=== PATIENT | male | born 1990 | race Caucasian/White ===

== ENCOUNTER 2016-08-06 16:42 | Outpatient (CLI) | payer OTHER ==
[2016-08-06 18:16] LABS: THYROID STIMULATING HORMONE 2.1 uIU/mL (0.34-5.60)
== END 2016-08-06 16:43 | disposition home or self-care (01) ==
LOC: LAB 16:42
PROVIDERS: ATTEND Surgery
DX: E04.1 Nontoxic single thyroid nodule (principal)
CPT/HCPCS: 36415; 84439; 84443

== ENCOUNTER 2016-08-11 09:46 | Outpatient (CLI) | payer OTHER | END 2016-08-11 09:47 | disposition home or self-care (01) | DX: E04.1 Nontoxic single thyroid nodule (principal) ==

== ENCOUNTER 2020-12-14 14:43 | Emergency (ER) | payer SELFPAY ==
[2020-12-14 14:59] VITALS: BP 143/73
--- NOTE | 2020-12-14 15:52 | ED Physician Documentation ---
History of Present Illness - Stated complaint Stated Complaint: COLLARBONE PX - Chief complaint Chief Complaint: Ext Problem - History obtained from History obtained from: Patient, Family - History of Present Illness Timing: How many days ago (3) Pain level max: 7 Pain level now: 5 - Additonal information Additional information: Patient is a 30-year-old male who presents to the emergency department after a fall 3 days ago in which he fractured his left clavicle. Worse with movement, better with rest. No numbness or tingling. He was seen at a small hospital out of town and told to follow-up with orthopedics. He states the pain has increased and is here for repeat evaluation. No other injuries. He was placed in a figure 8 brace. Review of Systems Constitutional: denies: Fever, Chills GI: denies: Vomiting Musculoskeletal: denies: Neck pain, Back pain Neurologic: denies: Headache, Head injury PD PAST MEDICAL HISTORY - Past Medical History Past Medical History: No - Past Surgical History Past Surgical History: Yes Derm: Other - Present Medications Home Medications: Ambulatory Orders Medication Instructions Recorded Confirmed HYDROcod/ACETAM 5/325 [Marianna 5/325] 1 tab PO PRN PRN 12/14/20 12/14/20 - Allergies Allergies/Adverse Reactions: Allergies Allergy/AdvReac Type Severity Reaction Status Date / Time No Known Drug Allergies Allergy Verified 12/14/20 14:59 - Social History Does the pt smoke?: No Smoking Status: Never smoker Does the pt drink ETOH?: Yes Does the pt have substance abuse?: Yes Substance Use and Type: Marijuana - Immunizations Immunizations are current?: Yes PD ED PE NORMAL - Vitals Vital signs reviewed: Yes - General General: Alert and oriented X 3, No acute distress - HEENT HEENT: Moist mucous membranes - Derm Derm: Warm and dry - Extremities Extremities: Other (L clavicle - Ecchymosis, swelling, tenderness to the left midshaft clavicle. Neurovascular intact including the axillary nerve.) - Neuro Neuro: Alert and oriented X 3 - Psych Psych: Normal mood, Normal affect Results - Vitals Vitals: Vital Signs - 24 hr 12/14/20 14:54 Temperature 36.0 C L Heart Rate 63 Respiratory 16 Rate Blood Pressure 143/73 H O2 Saturation 98 Oxygen O2 Source Room air - Rads (name of study) L clavicle xray Radiology: Prelim report reviewed, EMP read contemporaneously, See rad report (Comminuted midshaft clavicle fracture) PD MEDICAL DECISION MAKING - ED course Complexity details: reviewed results, re-evaluated patient, considered differential, d/w patient ED course: Patient with a comminuted midshaft left clavicular fracture. No skin tenting. Neurovascularly intact. Placed in a sling. We will have him follow-up with orthopedics for further care. The [id number] brace was removed. Patient counseled regarding signs and symptoms for which I believe and urgent re- evaluation would be necessary. Patient with good understanding of and agreement to plan and is comfortable going home at this time This document was made in part using voice recognition software. While efforts are made to proofread this document, sound alike and grammatical errors may occur. Departure - Departure Disposition: 01 Home, Self Care Clinical Impression: Clavicle fracture Qualifiers: Encounter type: initial encounter Clavicle location: shaft Fracture type: closed Fracture alignment: displaced Laterality: left Qualified Code(s): S42.022A - Displaced fracture of shaft of left clavicle, initial encounter for closed fracture Condition: Good Instructions: ED Fx Clavicle Follow-Up: [facility] [Provider Group] - Within 1 week Comments: Follow-up with orthopedics for repeat evaluation. Return if you worsen. You continue to use your pain medications as needed at home. Continue to stay in the sling as much as possible. You can gently move your shoulder to help prevent a frozen shoulder, making small movements in the sling.
--- NOTE | 2020-12-14 16:08 | XRAY Report ---
PROCEDURE: Clavicle LT INDICATIONS: clavicle fracture 3 days ago TECHNIQUE: 2 views of the clavicle were acquired. COMPARISON: None. FINDINGS: Bones: Markedly comminuted fracture of the distal shaft of the left clavicle with displacement and ov erriding. No suspicious bony lesions. Soft tissues: No suspicious soft tissue calcifications. IMPRESSION: Comminuted, displaced left clavicular fracture with overriding. Reviewed by: Christiano Washington MD on 12/14/2020 3:06 PM [facility] Approved by: Christiano Washington MD on 12/14/2020 3:06 PM [facility] Station ID: [id number]
== END 2020-12-14 16:53 | disposition home or self-care (01) ==
LOC: ED 14:43
DX: S42.022A Displaced fracture of shaft of left clavicle, initial encounter for closed fracture (principal); W19.XXXA Unspecified fall, initial encounter
CPT/HCPCS: 99283; 99284

== ENCOUNTER 2021-01-28 08:45 | Outpatient (CLI) | payer SELFPAY ==
--- NOTE | 2021-01-28 15:00 | XRAY Report ---
PROCEDURE: Clavicle LT INDICATIONS: DISPLACED FX OF SHAFT OF L CLAVICLE TECHNIQUE: 2 views of the clavicle were acquired. COMPARISON: 12/14/2020 FINDINGS: Bones: There is again seen a comminuted fracture of the midportion of the left clavicle, with overlap ping of fracture fragments. Since the prior examination, there has been remodeling of the fracture li livier, with rounding of the fracture margins and callus formation. Minimal bridging callus formation is seen. No new fracture is seen. The visualized ribs appear intact. No suspicious lytic or blastic lesions a re seen. Soft tissues: No suspicious soft tissue calcifications. The visualized lung demonstrates a normal a ppearance. IMPRESSION: Mild interval healing change of the comminuted fracture of the left mid clavicle, with overlapping of fracture fragments. Reviewed by: Paulino Crump MD on 01/28/2021 1:59 PM [facility] Approved by: Paulino Crump MD on 01/28/2021 1:59 PM [facility] Station ID: [id number]
== END 2021-01-28 23:59 | disposition home or self-care (01) ==
LOC: DI.N 08:45
PROVIDERS: ATTEND Physician Assistant
DX: S42.012D Anterior displaced fracture of sternal end of left clavicle, subsequent encounter for fracture with routine healing (principal)

== ENCOUNTER 2023-04-15 09:15 | Outpatient (CLI) | payer OTHER ==
[2023-04-15 09:29] LABS: BASOPHILS % (AUTO) 0.6 %; EOSINOPHILS # (AUTO) 0.1 10^3/uL (0.0-0.7); EOSINOPHILS % (AUTO) 1.8 %; HCT - HEMATOCRIT 44.9 % (42.0-52.0); HGB - HEMOGLOBIN 13.8 g/dL (14.0-18.0); LYMPHOCYTES # (AUTO) 2.6 10^3/uL (1.5-3.5); LYMPHOCYTES % (AUTO) 36.4 %; MEAN CORPUSCULAR HEMOGLOBIN 22.2 pg (27.0-31.0); MEAN CORPUSCULAR HGB CONC 30.7 g/dL (32.0-36.0); MEAN CORPUSCULAR VOLUME 72.1 fL (80.0-94.0); MEAN PLATELET VOLUME 10.2 fL (7.4-11.4); MONOCYTES # (AUTO) 0.5 10^3/uL (0.0-1.0); NEUTROPHILS # (AUTO) 3.9 10^3/uL (1.5-6.6); NEUTROPHILS % (AUTO) 54.1 %; PLT - PLATELET COUNT 332 10^3/uL (130-450); RED BLOOD COUNT 6.23 10^6/uL (4.70-6.10); RED CELL DISTRIBUTION WIDTH 16.5 % (12.0-15.0); WHITE BLOOD COUNT 7.3 x10^3/uL (4.8-10.8)
[2023-04-15 09:44] LABS: % IRON SATURATION 28 % (20-50); ALBUMIN 4.6 g/dL (3.2-5.5); ALBUMIN/GLOBULIN RATIO 2.1 (1.0-2.2); ALKALINE PHOSPHATASE 50 IU/L (42-121); ALT ALANINE AMINOTRANSFERASE 22 IU/L (10-60); AST ASPARTATE AMINOTRANSFERASE 28 IU/L (10-42); BILIRUBIN,TOTAL 0.3 mg/dL (0.2-1.0); BUN - BLOOD UREA NITROGEN 15 mg/dL (6-20); CALCIUM 9.6 mg/dL (8.5-10.3); CARBON DIOXIDE - CO2 29 mmol/L (21-32); CHLORIDE 107 mmol/L (101-111); CHOL/HDL RATIO 4.1 (<5.0); CHOLESTEROL 203 mg/dL; GFR - MDRD 85 (>89); GLUCOSE 96 mg/dL (74-104); HDL CHOLESTEROL 49 mg/dL; IRON 95 ug/dL (50-212); LDL CHOLESTEROL,CALCULATED 129 mg/dL; LDL/HDL RATIO 2.6 (<3.6); POTASSIUM 4.2 mmol/L (3.5-4.5); SODIUM 140 mmol/L (135-145); TOTAL IRON BINDING CAPACITY 336 ug/dL (250-450); TOTAL PROTEIN 6.8 g/dL (6.4-8.9); TRANSFERRIN 240 mg/dL (203-362); TRIGLYCERIDES 124 mg/dL (48-352); VLDL CHOLESTEROL 25 mg/dL
[2023-04-15 09:59] LABS: THYROID STIMULATING HORMONE 2.95 uIU/mL (0.34-5.60)
[2023-04-15 10:05] LABS: FERRITIN 51.5 ng/mL (23.9-336.2)
== END 2023-04-15 09:16 | disposition home or self-care (01) ==
LOC: LAB 09:15
PROVIDERS: ATTEND Physician Assistant
DX: D50.9 Iron deficiency anemia, unspecified (principal); Z13.9 Encounter for screening, unspecified; Z13.220 Encounter for screening for lipoid disorders; Z13.29 Encounter for screening for other suspected endocrine disorder
CPT/HCPCS: 36415; 80053; 80061; 82728; 83540; 83721; 84443; 84466; 85025